=== PATIENT | male | born 1945 | race Caucasian/White ===

== ENCOUNTER 2020-08-13 02:25 | Emergency (ER) | payer OTHER ==
[~2020-08-13] VITALS: Ht 172.7 cm; Wt 87.1 kg
[2020-08-13 06:48] LABS: Urine Bacteria MANY /hpf (None Seen); Urine Blood 3+ /uL (Negative); Urine Specific Gravity 1.011 (1.001-1.035); Urine WBC 40 /hpf (0 - 3)
[2020-08-13] MEDS ORDERED: amLODIPine BESYLATE 5 MG TAB PO ONE (07:15)
[2020-08-13] MEDS ORDERED: cefTRIAXone 1GM/50ML D5W 50 ML IV ONE (07:15)
[2020-08-13 08:07] VITALS: BP 168/106
== END 2020-08-13 10:02 | disposition home or self-care (01) ==
LOC: ER 02:27
DX: N39.0 Urinary tract infection, site not specified (principal); I16.1 Hypertensive emergency; I10 Essential (primary) hypertension
CPT/HCPCS: 51702; 74176; 81001; 87086; 96365; 99284; J0696